=== PATIENT | female | born 1960 | race Caucasian/White ===

== ENCOUNTER 2017-02-14 09:44 | Emergency (ER) | payer OTHER ==
[2017-02-14 10:56] LABS: BASOPHIL % 0.5 % (0-2); RED CELL DISTRIBUTION WIDTH 12.7 % (11.5-14.5)
[2017-02-14 11:04] LABS: PLATELET COUNT 118 x10^3mcL (130-400)
[2017-02-14 11:06] LABS: CALCIUM 8.5 mg/dL (8.5-10.1); CARBON DIOXIDE 27.3 mmol/L (21-32); CHLORIDE SERUM 105 mmol/L (98-107); CREATININE SERUM 0.7 mg/dL (0.6-1.0); GFR1 > 60 mL/min; GLUCOSE SERUM 102 mg/dL (74-106); POTASSIUM SERUM 4.1 mmol/L (3.5-5.1); SODIUM SERUM 140 mmol/L (136-145)
[2017-02-14 11:12] LABS: ALBUMIN 4.3 g/dL (3.4-5.0); ALKALINE PHOSPHATASE 77 U/L (46-116); ALT/SGPT 35 U/L (14-59); AST/SGOT 23 U/L (15-37); TOTAL PROTEIN, SERUM 7.5 g/dL (6.4-8.2)
[2017-02-14 11:40] LABS: UA SPECIFIC GRAVITY <=1.005 (1.005-1.035); microscopic required? YES; urine erythrocyte TRACE (NEGATIVE)
[2017-02-14 16:35] VITALS: BP 147/100
== END 2017-02-14 16:35 | disposition home or self-care (01) ==
LOC: ED 09:44
PROVIDERS: Emergency Medicine
DX: M54.5 Low back pain (principal); R03.0 Elevated blood-pressure reading, without diagnosis of hypertension; I10 Essential (primary) hypertension; M06.9 Rheumatoid arthritis, unspecified
CPT/HCPCS: 83880; J2060; J3010; J7030; Q9967

== ENCOUNTER 2017-11-12 20:14 | Emergency (ER) | payer OTHER ==
[~2017-11-12] VITALS: Ht 165.1 cm; Wt 101.3 kg
[2017-11-12 20:50] VITALS: Ht 165.1 cm; Wt 101.3 kg
[2017-11-13 01:08] VITALS: BP 153/82
== END 2017-11-13 01:08 | disposition home or self-care (01) ==
LOC: ED 20:14
DX: R51 Headache (principal); R11.0 Nausea; I10 Essential (primary) hypertension
CPT/HCPCS: J1885; Q0162

== ENCOUNTER 2018-05-12 09:42 | Emergency (ER) | payer OTHER ==
[~2018-05-12] VITALS: Ht 165.1 cm; Wt 101.6 kg
[2018-05-12 09:58] VITALS: Ht 165.1 cm; Wt 101.6 kg
[2018-05-12 11:30] LABS: ALBUMIN 4.1 g/dL (3.4-5.0); BILIRUBIN DIRECT 0.16 mg/dL (0.0-0.2); BILIRUBIN TOTAL 0.6 mg/dL (0.20-1.00); CARBON DIOXIDE 27.1 mmol/L (21-32); CREATININE SERUM 0.7 mg/dL (0.6-1.0); POTASSIUM SERUM 3.7 mmol/L (3.5-5.1); TOTAL PROTEIN, SERUM 7.1 g/dL (6.4-8.2)
[2018-05-12 12:25] LABS: ATYPICAL LYMPH 4 %; BAND NEUTROPHIL 3 % (0-10); BASOPHIL 0 % (0-2); MONOCYTE 19 % (0-7); PLATELET MORPHOLOGY PLATELETS DECREASED; SEGMENTED NEUTROPHILS 53 % (37-75); rbc morphology (normal/abnorm) ABNORMAL (NORMAL)
[2018-05-12 13:25] VITALS: BP 147/96
[2018-05-12 13:44] LABS: PLATELET COUNT 111 x10^3mcL (130-400); RED CELL DISTRIBUTION WIDTH 12.8 % (11.5-14.5)
== END 2018-05-12 13:24 | disposition home or self-care (01) ==
LOC: ED 09:42
PROVIDERS: Emergency Medicine
DX: M79.604 Pain in right leg (principal); M06.9 Rheumatoid arthritis, unspecified; I10 Essential (primary) hypertension
CPT/HCPCS: 36415; 85378; J1885; Q0092

== ENCOUNTER 2018-10-04 14:48 | Emergency (ER) | payer OTHER ==
[~2018-10-04] VITALS: Ht 165.1 cm; Wt 102.1 kg
[2018-10-04 14:53] VITALS: Ht 165.1 cm; Wt 102.1 kg
[2018-10-04 15:10] LABS: BASOPHIL % 0.4 % (0-2); RED CELL DISTRIBUTION WIDTH 12.9 % (11.5-14.5)
[2018-10-04 15:11] LABS: PLATELET COUNT 120 x10^3mcL (130-400)
[2018-10-04 15:18] LABS: CALCIUM 8.9 mg/dL (8.5-10.1); CARBON DIOXIDE 28.9 mmol/L (21-32); CHLORIDE SERUM 109 mmol/L (98-107); CREATININE SERUM 0.6 mg/dL (0.6-1.0); GFR1 > 60 mL/min; GLUCOSE SERUM 165 mg/dL (74-106); POTASSIUM SERUM 3.6 mmol/L (3.5-5.1); SODIUM SERUM 147 mmol/L (136-145)
[2018-10-04 15:24] LABS: ALBUMIN 4.2 g/dL (3.4-5.0); ALKALINE PHOSPHATASE 73 U/L (46-116); ALT/SGPT 33 U/L (14-59); AST/SGOT 13 U/L (15-37); LIPASE 69 IU/L (73-393); TOTAL PROTEIN, SERUM 7.2 g/dL (6.4-8.2)
[2018-10-04 17:26] LABS: UA SPECIFIC GRAVITY 1.015 (1.005-1.035); microscopic required? YES; urine erythrocyte 1+ (NEGATIVE)
[2018-10-04 17:43] LABS: AMPHETAMINE QUAL UR NONE DETECTED (See below)
[2018-10-04 17:58] LABS: CALCIUM 9.1 mg/dL (8.5-10.1); MAGNESIUM 2.2 mg/dL (1.8-2.4)
[2018-10-04 19:47] VITALS: BP 118/77
== END 2018-10-04 19:47 | disposition home or self-care (01) ==
LOC: ED 14:48
PROVIDERS: Emergency Medicine
DX: N39.0 Urinary tract infection, site not specified (principal); I10 Essential (primary) hypertension; M06.9 Rheumatoid arthritis, unspecified; E66.9 Obesity, unspecified; Z68.37 Body mass index [BMI] 37.0-37.9, adult
CPT/HCPCS: 82962; 83880; J1885; J3490; Q0092